=== PATIENT | male | born 1965 | race Caucasian/White ===

== ENCOUNTER 2022-05-30 16:02 | Emergency (ER) | payer OTHER ==
[2022-05-30 17:00] LABS: BASOPHIL 0.9 % (0-2); EOSINOPHIL 0.9 % (0-5); HCT 46.3 % (42.0-52.0); HGB 14.9 g/dl (13.2-18.0); LYMPHOCYTE 3.5 % (15-48); MCH 27.2 pg (25.0-31.0); MCHC 32.2 g/dL (32.0-36.0); MCV 84.5 fL (78.0-100.0); MONOCYTE 9.8 % (0-12); MPV 11.6 fL (6.0-9.5); NEUTROPHIL 84.4 % (41-80); NRBC 0; PLT 152 K/uL (150-400); RBC 5.48 M/uL (4.70-6.00); RDW 14.2 % (11.5-14.0)
[2022-05-30 17:03] LABS: INFLUENZA A NAA NEGATIVE (NEGATIVE)
[2022-05-30 17:05] LABS: CORONAVIRUS 2019 SARS-COV-2 POSITIVE (NEGATIVE)
[2022-05-30 17:29] LABS: BILIRUBIN - TOTAL 0.5 mg/dL (0.2-1.0); BUN/CREAT RATIO (CALC) 13.8 RATIO; CREATININE 2.17 mg/dL (0.67-1.17); GLOBULIN (CALCULATION) 3.4 g/dL; LACTIC ACID 1.2 mmol/L (0.4-1.9); POTASSIUM 4.1 mmol/L (3.5-5.1); TOTAL PROTEIN 7.4 g/dL (6.4-8.2)
[2022-05-30 18:22] LABS: BILIRUBIN NEGATIVE (NEGATIVE); BLOOD NEGATIVE Ery/uL (NEGATIVE); CLARITY CLEAR (CLEAR); COLOR YELLOW (YELLOW); GLUCOSE (U) NORMAL (NORMAL); LEUKOCYTES NEGATIVE Leu/uL (NEGATIVE); NITRITE NEGATIVE (NEGATIVE); PROTEIN 2+ mg/dL (NEGATIVE); SPECIFIC GRAVITY 1.015 (1.001-1.030); UROBILINOGEN 0.2 mg/dL (0.2-1.0)
[2022-05-30 18:46] LABS: URINARY WBC RARE
[2022-05-31] MEDS ORDERED: PAXLOVID CO-PA1 EAC1 PO (12:31)
== END 2022-05-30 19:58 | disposition home or self-care (01) ==
LOC: FER 16:02
PROVIDERS: Nurse Practitioner Family
DX: U07.1 COVID-19 (principal); E86.0 Dehydration; I12.9 Hypertensive chronic kidney disease with stage 1 through stage 4 chronic kidney disease, or unspecified chronic kidney disease; N18.9 Chronic kidney disease, unspecified; Z88.0 Allergy status to penicillin; Z28.310 Unvaccinated for COVID-19
CPT/HCPCS: 36415; 71046; 80053; 81001; 83605; 84145; 84484; 85025; 87040; 93005; J1100; J1885; J7030; U0002